=== PATIENT | female | born 1960 | race Caucasian/White ===

== ENCOUNTER 2017-04-25 18:44 | Emergency (ER) | payer OTHER ==
[~2017-04-25] VITALS: Ht 160 cm; Wt 88.6 kg
[~2017-04-25 18:44] MED LIST: ALBU8.5H2 INHALATION; ATRV10T PO; CA C1TAB87 PO; CHOL100045 PO; ESTR0.5T PO; LIDO700A6 TP; LISI-567 PO; LORA10CA PO; METH500T5 PO; METR45CR TP; OMEG-38 PO; OMEP20CA11 PO; OXYC1TAB24 PO; SALINE EYE AFFECT_EYE; [UNRECOGNIZED DRUG - CODE] AFFECT_EYE
[2017-04-25 18:54] VITALS: BP 171/87; PULSE 86; RESP 16; O2SAT 99
--- NOTE | 2017-04-25 19:10 | ED.REPORT ---
HPI-Abd Pain F 40 and Over Date of Service Apr 25, 2017 ED Provider: Dr. Nick 56 y/o female with a hx of diverticulitis, diabetes mellitus type 2, hypertension and hyperlipidemia presents to the ED complaining of right lower quadrant abdominal spasms, onset 8 hours ago after she ate at [employer]. She took Omeprazole which did not relieve her sx. Associated sx include one episode of diarrhea. She denies nausea and vomiting. Her sx got significantly worse over time so she went to urgent care, where she was advised to go to the ED to rule out appendicitis. In the ED, the pt states "I'm feeling better now. I ''m starting to hear gurgling and the spasms are not as severe. They are now 10- 15 minutes apart instead of every 5 minutes like earlier". Nursing Notes Stated Complaint: ABDOMINAL PAIN Chief Complaint: Female Abdominal Pain Nursing Notes Reviewed: Yes Allergies: Coded Allergies: Sulfa (Sulfonamide Antibiotics) (Verified Allergy, Unknown, RASH, 04/25/17) doxycycline (Verified Allergy, Unknown, RASH, THROAT SWELLS ( TETRACYCLINE), 04/25/17) Uncoded Allergies: BEE STINGS (Adverse Reaction, Severe, SWELLING, 05/17/16) Scheduled ([Saline Eye Gtts]) 1-2 DROP AFFECT_EYE PRN Atorvastatin (Lipitor) 10 Mg Tab 10 MG PO DAILY Ca Carbonate/Vitamin D3/Vit K (Citracal Soft Chew) 1 Each Tab.chew 1 EACH PO DAILY Cholecalciferol (Vitamin D3) (Vitamin D) 1,000 Unit Capsule 1,000 UNIT PO DAILY Estradiol (Estradiol) 0.5 Mg Tablet 0.5 MG PO DAILY Lidocaine (Lidoderm) 700 Mg Adh..patch 1 PATCH TP DAILY UD 5% Lisinopril (Lisinopril) 20 Mg Tablet 20 MG PO DAILY Loratadine (Claritin) 10 Mg Capsule 10 MG PO DAILY Methylcellulose (Citrucel) 500 Mg Tablet 500 MG PO BID Metronidazole (Metronidazole Cream) 45 Gm Cream..g. 1 APPLIC TP BID 0.75% Mineral Oil/Petrolatum,White (Lubricant Eye Ointment) 3.5 Gm Oint...g. 3.5 GM AFFECT_EYE PRN [place]-3/Dha/Epa/Fish Oil (Fish Oil 1,000 mg Softgel) 1 Each Capsule 1 EACH PO DAILY Omeprazole (Omeprazole) 20 Mg Capsule.dr 20 MG PO BID Scheduled PRN Albuterol HFA (Proair HFA) 8.5 Gm Hfa.aer.ad 2 PUFFS INHALATION Q4H PRN PRN PRN Dicyclomine (Dicyclomine) 10 Mg Capsule 1-2 CAPSULE PO QID PRN PRN For GI Cramps oxyCODONE-Acetaminophen 5-325 mg (oxyCODONE-Acetaminophen 5-325 mg) 1 Each Tablet 1 TAB PO Q4H PRN PRN For Pain General Time Seen by MD: 19:09 Chief Complaint Abdominal pain Hx Obtained From: Patient Arrived By: Walk-in Sudden in Onset?: Yes Onset Occurred: 5 - 8 hours ago Symptom Duration: Since onset Progression since Onset: Gradually improving Location: : RLQ Quality: Painful Radiation: : Does not radiate Severity: Current: Mild Severity: Maximum: Moderate Recent Healthcare: Recent doctor visit Similar Sx Previous: No Past Medical History Past Medical History Reports: Diabetes mellitus, Hypertension Reports: Diverticulitis Past Surgical History colon resection Reports: Cholecystectomy, Hysterectomy Smoking History Never Smoker, Unknown if Ever Smoker Social History Alcohol Use: Denies alcohol use Drug Use: Denies drug use Other Social History: Local resident Ambulatory Status Independent Review of Systems GI: Reports: Abdominal pain, Diarrhea (resolved), Denies: Nausea Complete sys rev & neg: except as marked. Physical Exam Vital Signs Vital Signs (First) Date Time Temp Pulse Resp B/P Pulse Ox O2 Delivery O2 Flow Rate FiO2 04/25/17 18:54 36.6 86 16 171/87 99 Room Air Initial VS: Reviewed Head / Eyes: Atraumatic, Normocephalic Neck: Supple, Non-tender, Full range of motion Extremities: Vascular intact, Neuro intact, No swelling, No tenderness Skin: Warm, Dry, No cyanosis Neurologic: Alert, Oriented, Nonfocal General/Constitutional: Awake, Alert, No acute distress, Cooperative Respiratory / Chest: Atraumatic, Breath sounds NL, Breath sounds = bilat, No respiratory distress, No rales, No rhonchi, No wheezing Cardiovascular: Heart rate NL, Regular rhythm, Heart sounds NL, No murmurs, No rubs Abdomen: Atraumatic, Soft, No guarding, No rebound Tenderness/Guarding/Rebound: Positive: Tender diffuse (mild) Back: Atraumatic, Full range of motion, Painless range of motion Interpretation & Diagnostics Lab Results Interpretation Result Diagram: 04/25/17193904/25/171939 Test 04/25/17 19:40 04/25/17 20:30 White Blood Count 13.1th/mm3 (3.8-10.1) Red Blood Count 5.09mil/mm3 (3.90-5.20) Hemoglobin 15.0g/dL (12.0-15.6) Hematocrit 44.3% (35.0-46.0) Mean Corpuscular Volume 87.0fL (81-100) Mean Corpuscular Hemoglobin 29.5pg (27.0-35.0) Mean Corpuscular Hemoglobin Concent 33.9% (32.0-37.0) Red Cell Distribution Width 13.3% (12.3-15.4) Platelet Count 288bil/L (150-400) Neutrophils (%) (Auto) 75.1% (40-74) Lymphocytes (%) (Auto) 19.7% (14-46) Monocytes (%) (Auto) 4.8% (4-12) Eosinophils (%) (Auto) 0.2% (0-5) Basophils (%) (Auto) 0% (0-3) Sodium Level 139mEq/L (134-144) Potassium Level 4.1mEq/L (3.5-5.2) Chloride Level 102mEq/L (97-108) Carbon Dioxide Level 20mmol/L (18-29) Blood Urea Nitrogen 15mg/dL (6-24) Creatinine 0.75mg/dL (0.57-1.00) Estimat Glomerular Filtration Rate 114mL/min (>59) Glucose Level 131mg/dL (60-99) Calcium Level 9.5mg/dL (8.5-10.1) Total Bilirubin 0.3mg/dL (0.0-1.2) Aspartate Amino Transf (AST/SGOT) 16U/L (0-50) Alanine Aminotransferase (ALT/SGPT) 17U/L (0-32) Alkaline Phosphatase 47U/L (25-150) Total Protein 7.4g/dL (6.4-8.4) Albumin 4.4g/dL (3.4-5.0) Hold Case Top Tube Received (Received) Hold Urine Received (Received) Re-Eval/Medical Decision Med Decision/Clinical Course pts symptoms have improved significantly since UC visit and no longer with RLQ tenderness. Pt prefers not to have CT and I am okay with this as there is a much more likely explanation for pain than appendicitis and pain is improving. Source of Hx: Old records Re-Evaluation/Progress : Time of Eval: 19:15 Patient Status: Condition improved Re-Evaluation/Progress Note: Rechecked pt. Discussed lab results, imaging results, diagnosis and plan to discharge. Pt understands and agrees with the plan. F/U instructions and RTER warning given. All questions addressed. Counseled Regarding: Diagnosis, Lab results, Need for follow-up, When/why to return to ED Discharge & Departure Primary Impression: Gastroenteritis Additional Impression: Abdominal cramping Disposition: Home Discharge Condition All VS Reviewed: Yes Condition: Stable Patient Instructions: Acute Abdominal Pain (ED) Additional Instructions: Thank you for entrusting us with your care today. Your symptoms seem to be improving in the emergency department. As discussed, take Pepto Bismol for upset stomach. You may also try dicyclomine for abdominal cramps. Follow up with your primary care provider if not improving. Return to the emergency department in case of vomiting, worsening diarrhea, abdominal pain or new or worsening symptoms. Referrals: Sahara Crain (PCP) Scribe Attestation Portions of this note were transcribed by Irina Benjamin. I, , personally performed the history, physical exam and medical decision- making;I reviewed and confirmed the accuracy of the information in the transcribed note. Signed by Diann Lewis. 04/25/17 22:20 copies to: Sahara Crain Gary R DO Apr 25, 2017 19:10 Irina Benjamin Apr 25, 2017 20:42
[2017-04-25 20:01] LABS: BASOPHILS % (AUTO) 0 % (0-3); EOSINOPHILS % (AUTO) 0.2 % (0-5); MONOCYTES % (AUTO) 4.8 % (4-12); Mean Corpuscular Hemoglobin 29.5 pg (27.0-35.0); NEUTROPHILS % (AUTO) 75.1 % (40-74); Platelet Count 288 bil/L (150-400)
[2017-04-25] MEDS ORDERED: DICY10CA13 PO (21:04)
== END 2017-04-25 21:21 | disposition home or self-care (01) ==
LOC: SED 18:44
DX: K52.9 Noninfective gastroenteritis and colitis, unspecified (principal); E11.9 Type 2 diabetes mellitus without complications; E78.5 Hyperlipidemia, unspecified; Z87.19 Personal history of other diseases of the digestive system; Z90.49 Acquired absence of other specified parts of digestive tract; Z90.710 Acquired absence of both cervix and uterus; Z79.890 Hormone replacement therapy; Z79.51 Long term (current) use of inhaled steroids; Z88.2 Allergy status to sulfonamides; Z88.1 Allergy status to other antibiotic agents